=== PATIENT | male | born 1965 | race Caucasian/White ===

== ENCOUNTER → 2023-10-01 09:52 | Outpatient (REF) | payer OTHER, SELFPAY ==
[2023-10-01 13:04] LABS: % Basophils 0.8 % (0-2); % Eosinophils 5.6 % (0-6); % Immature Granulocytes 0.6 % (0-0.5); % Lymphocytes 19.6 % (20.5-51.1); % Monocytes 7.4 % (1.7-9.3); Absolute Basophils 0.1 10^3/uL (0-0.2); Absolute Eosinophils 0.4 10^3/uL (0-0.7); Absolute Immature Granulocytes 0.1 10^3/uL (0-0.05); Absolute Lymphocytes 1.5 10^3/uL (1.2-3.4); Absolute Monocytes 0.6 10^3/uL (0.1-0.6); Absolute Neutrophils 5.1 10^3/uL (1.4-6.5); Hematocrit 45.5 % (39.0-52.0); Hemoglobin 16.5 g/dL (13.0-18.0); Mean Corp Hgb Conc. 36.3 g/dL (33.0-37.0); Mean Corpuscular Hgb 32.3 pg (27.0-31.0); Mean Platelet Volume 9.9 fL (7.4-10.4); Nucleated Red Blood Cells % 0 % (-); Platelet Count 220 10^3/uL (130-400); Red Blood Cell Count 5.11 10^6/uL (4.70-6.10); Red Cell Dist. Width 12.2 % (11.5-14.5); White Blood Cell Count 7.7 10^3/uL (4.8-10.8)
[2023-10-01 14:13] LABS: ALT (SGPT) 37 U/L (0-50); AST (SGOT) 28 U/L (17-59); Albumin 4.2 g/dl (3.5-5.0); Alkaline Phosphatase 67 U/L (38-126); Blood Urea Nitrogen 19 mg/dl (9-20); Calcium 9.4 mg/dl (8.4-10.2); Carbon Dioxide 27 mmol/L (22-30); Chloride 101 mmol/L (98-107); Glucose 189 mg/dl (70-99); HDL Cholesterol 38 mg/dl; LDL Cholesterol, Calculated 23 mg/dl; Potassium 4.2 mmol/L (3.5-5.1); Sodium 137 mmol/L (135-145); Total Bilirubin 0.9 mg/dl (0.2-1.3); Total Cholesterol 95 mg/dl (50-199); Total Protein 6.7 g/dl (6.3-8.2); Triglyceride 172 mg/dl (10-149); Very Low Density Lipoprotein 34 mg/dl (0-30); eGFR > 60.00
[2023-10-01 14:14] LABS: Glycohemoglobin (HgbA1c) 8.9 % (4.0-5.6)
[2023-10-01 14:29] LABS: PSA, Total - Screen 0.52 ng/ml (0.0-4.0); TSH Reflex To Free T4 1.57 uIU/ml (0.47-4.68)
== END ==
LOC: HWLAB 09:52
PROVIDERS: ATTENDING PHYSICIAN Internal Medicine
DX: E11.65 Type 2 diabetes mellitus with hyperglycemia (principal); I10 Essential (primary) hypertension; E66.01 Morbid (severe) obesity due to excess calories; E78.5 Hyperlipidemia, unspecified
CPT/HCPCS: 36415; 80053; 80061; 83036; 84443; 85025; G0103

== ENCOUNTER → 2023-10-21 10:44 | Outpatient (REF) | payer OTHER, SELFPAY ==
[2023-10-21 13:55] LABS: Hematocrit 44.9 % (39.0-52.0); Hemoglobin 16.4 g/dL (13.0-18.0); Mean Corp Hgb Conc. 36.5 g/dL (33.0-37.0); Mean Corpuscular Hgb 32.7 pg (27.0-31.0); Mean Corpuscular Volume 89.6 fL (80.0-94.0); Mean Platelet Volume 10.1 fL (7.4-10.4); Platelet Count 241 10^3/uL (130-400); Red Blood Cell Count 5.01 10^6/uL (4.70-6.10); Red Cell Dist. Width 12.2 % (11.5-14.5); White Blood Cell Count 7.5 10^3/uL (4.8-10.8)
[2023-10-21 14:12] LABS: ALT (SGPT) 31 U/L (0-50); AST (SGOT) 31 U/L (17-59); Albumin 4.4 g/dl (3.5-5.0); Alkaline Phosphatase 65 U/L (38-126); Blood Urea Nitrogen 18 mg/dl (9-20); Calcium 9.9 mg/dl (8.4-10.2); Carbon Dioxide 23 mmol/L (22-30); Chloride 103 mmol/L (98-107); Glucose 145 mg/dl (70-99); HDL Cholesterol 37 mg/dl; LDL Cholesterol, Calculated 29 mg/dl; Potassium 4.1 mmol/L (3.5-5.1); Sodium 137 mmol/L (135-145); Total Cholesterol 88 mg/dl (50-199); Total Protein 6.8 g/dl (6.3-8.2); Triglyceride 110 mg/dl (10-149); Very Low Density Lipoprotein 22 mg/dl (0-30); eGFR > 60.00
[2023-10-21 14:26] LABS: Urine Protein 9 mg/dl
[2023-10-21 14:27] LABS: Microalbumin, Random Urine 6.7 mg/dl (0.6-1.7); Microalbumin/creatinine Ratio 31.1 mg/g
[2023-10-21 14:30] LABS: TSH 1.57 uIU/ml (0.47-4.68)
== END ==
LOC: HWLAB 10:44
PROVIDERS: ATTENDING PHYSICIAN Physician Assistant; FAMILY PHYSICIAN Internal Medicine
DX: E11.9 Type 2 diabetes mellitus without complications (principal)
CPT/HCPCS: 36415; 80053; 80061; 82043; 82570; 84156; 84443; 85027

== ENCOUNTER 2024-01-05 16:16 | Inpatient (IN) | payer OTHER, SELFPAY ==
[2024-01-05] VITALS (11 sets, daily range): BP systolic 100–158; BP diastolic 70–96; BMI 42.3; BMI 41.3
[2024-01-05 13:48] LABS: % Basophils 0.2 % (0-2); % Eosinophils 0.3 % (0-6); % Immature Granulocytes 0.4 % (0-0.5); % Lymphocytes 6.4 % (20.5-51.1); % Monocytes 8.7 % (1.7-9.3); Absolute Eosinophils 0.1 10^3/uL (0-0.7); Absolute Immature Granulocytes 0.1 10^3/uL (0-0.05); Absolute Monocytes 1.4 10^3/uL (0.1-0.6); Absolute Neutrophils 13.1 10^3/uL (1.4-6.5); Hematocrit 42.7 % (39.0-52.0); Mean Corp Hgb Conc. 37.5 g/dL (33.0-37.0); Mean Corpuscular Hgb 31.4 pg (27.0-31.0); Mean Corpuscular Volume 83.9 fL (80.0-94.0); Mean Platelet Volume 8.9 fL (7.4-10.4); Nucleated Red Blood Cells % 0 % (-); Platelet Count 197 10^3/uL (130-400); Red Blood Cell Count 5.09 10^6/uL (4.70-6.10); Red Cell Dist. Width 11.9 % (11.5-14.5); White Blood Cell Count 15.6 10^3/uL (4.8-10.8)
--- NOTE | 2024-01-05 13:50 | ED.GENMED ---
History of Present Illness
<Rebeca Balderas PA-C - Last Filed: 01/05/24 23:20>
General
Chief Complaint: Abdominal Pain
Source: patient
Exam Limitations: none
Time Seen by Provider: 01/05/24 13:29
Nursing documentation reviewed up to this point in time: agreed with
History of Present Illness
History of Present Illness:
Patient is a 58-year-old male with history of kidney stones, diabetes presenting to the emergency department for evaluation of right flank pain. Patient states he initially noticed symptoms on with an episode of pink colored urine. He then
developed a sharp pain in his right lower abdomen with radiation around to his right lower back. Patient states the pain is constant with no alleviating or exacerbating factors. Patient does also endorse nausea over the past few days. Denies any
fever, chills, vomiting. Patient does endorse very low opted for a few days due to nausea and pain. Patient has not had any other episodes of hematuria or dysuria.
Patient does have a history of kidney stones which she has always been able to pass on his own. He does have Flomax at home which she did take without any improvement.
Patient states that this feels similar to prior kidney stones
Past History
<Rebeca Balderas PA-C - Last Filed: 01/05/24 23:20>
Past History
ED Past Medical History: Asthma and Other (Kidney stones, sleep apnea, asthma, cellulitis, thyroid goiter)
ED Past Surgical History: Orthopedic
Social History
Tobacco: Non-smoker
Alcohol: Occasional
Drug: None
Personal:
Living: with family
Family History
Family History: Negative Diabetes, Hypertension or CAD
Review of Systems
<Rebeca Balderas PA-C - Last Filed: 01/05/24 23:20>
Review of Systems
Allergies reviewed?: Yes
All Other Systems: ROS reviewed and negative except as documented in HPI and ROS
Phy Exam
<Rebeca Balderas PA-C - Last Filed: 01/05/24 23:20>
Physical Exam
Physical Exam:
Vitals: Patient's vital signs are stable. Afebrile
General: Patient is well appearing, no acute distress
Skin: Warm and dry, no rashes or lesions
Head: Normocephalic, atraumatic
Eyes: Sclera nonicteric. EOMs intact. No nystagmus.
Throat: Protecting airway
Neck: Normal ROM, no cervical spine tenderness, no meningismus
Cardiac: Regular rate and rhythm, no murmurs.
Pulm: Normal respiratory effort, no wheezes, rales, rhonchi heard on exam.
Abdomen: Abdomen soft. No abdominal tenderness. No CVA tenderness
Extremities: No evidence of cyanosis or edema. Great distal pulses
Neuro: AAOx3. CN II-XII intact. No focal neurologic deficits.
Psychiatric: Normal affect.
Course
<Rebeca Balderas PA-C - Last Filed: 01/05/24 23:20>
Orders/Labs/Results
Orders:
Orders
01/05/24 13:39
CMP [Comprehensive Metabolic Panel] Urgent
Complete Blood Count/With Diff Urgent
Urinalysis Reflex To Culture Urgent
Date Specimen was Collected: 01/05/24
Time Specimen was Collected: 13:38
Urine Microscopic Reflex Cult Urgent
Urine Culture Urgent
ALEJANDRO Source: U
Specimen Description:
Date Specimen was Collected: 01/05/24
Time Specimen was Collected: 13:38
Comment: ADDON
01/05/24 13:51
Ketorolac [Toradol] 15 mg IV NOW STA
Ondansetron Injectable [Zofran] 4 mg IV NOW STA
01/05/24 13:52
CT Abd/pel Without Iv Or Oral Urgent
Comment: hx kidney stones
Reason For Exam: Right flank pain, + nausea
01/05/24 15:50
CefTRIAXone [Rocephin] 1,000 mg IV NOW STA
01/05/24 16:00
UROLOGY CONSULT Urgent
Consulting Provider: Alberto Drake Jr.
Was physician already notified: Yes
01/05/24 16:04
Admit/Transfer Patient As Directed
Co-Sign Provider:
Level of Care: Inpatient admission
Assign to:: Medical/Surgical
Physician / Group: Naresh
Diagnosis: obstructive uropathy secondary to nephrolithiasis
Reason for Hospitalization: see progress note
Expected length of stay greater than two midnights?: Yes
ELOS- Estimated Length of Stay in days: 2
I certify the patient meets the requirements for IP care: Yes
HYDROmorphone [Dilaudid] 0.25 mg IV PACU-Q5MPRN PRN
HYDROmorphone [Dilaudid] 0.5 mg IV PACU-Q5MPRN PRN
Ondansetron Injectable [Zofran] 4 mg IV PACU-ONCEPRN PRN
Prochlorperazine [Compazine] 5 mg IV PACU-ONCEPRN PRN
01/05/24 16:05
Code Status As Directed
Resuscitation Status: Full Code
Notify MD As Directed
Notify physician if: for SDS patients with known or suspected sleep obstructive sleep apnea, monitor in the
PACU.
Notify MD for any apneic/desaturation episodes
O2 Therapy [RESP] Urgent
Titrate/Wean O2 to maintain O2 sat greater than (%): 92
Special Instructions: -Provide supplemental oxygen to achieve O2 sat of 92% or greater.
-After 15 min, may wean O2 and discontinue if patient is able to maintain O2 sat of 92%
or greater during recovery period.
If patient is a discharge home, without oxygen therapy, notify anestheiologist if
unable to maintain O2 SAT of 92% or greater on room air for MD clearance.
01/05/24 16:15
0.9% Sodium Chloride 1000 ml [Nss] 1,000 ml IV PER PROTOCOL
01/05/24 17:00
Flush (0.9% Sodium Chloride) [Flush (Nss)] See Dose Instructions IV PER PROTOCOL
01/05/24 18:00
Acetaminophen [Tylenol] 650 mg PO Q4HPRN PRN
Dextrose 50%-Water [Dextrose 50% Syringe] 12.5 grams IV [id number] PRN
Glucagon [GlucaGen] 1 mg IM PRN PRN
Insulin Aspart Corrective Low [Novolog Flexpen-Low Resistance] See Protocol SC AC
Morphine Sulfate 2 mg IV Q4HPRN PRN
Tramadol HCl [Ultram] 25 mg PO Q6HPRN PRN
01/05/24 18:00
Add On - Microbiology Routine
Tests Added?: urine culture to admiting UA
Activity As Directed
Activity Level: As Tolerated
Bedside Glucose Monitoring As Directed
Frequency: AC&HS
Additional Instructions:: Change to q6h if pt on TPN, tube feeding or not eating
I&O [Intake/ Output] As Directed
Frequency: q12h
Nursing to Place Non Medication Order As Directed
Physician Order: Call MD (or night PATIENT FINANCIAL COORDINATOR if after 7 pm) to reconcile meds after he is back from OR and can have
PO intake
Above order entered?: Yes
DX Deep Vein Thrombosis Video Routine
01/05/24 19:18
Blood Culture Routine
ALEJANDRO Source: Blood/Venous
Specimen Description:
01/06/24 06:00
Basic Metabolic Panel IN AM
CBC/No Diff [Complete Blood Count/No Diff] IN AM
Glycohemoglobin (HgbA1c) IN AM
01/06/24 08:00
Heparin 5,000 units SC Q12
01/06/24 16:00
CefTRIAXone [Rocephin] 1,000 mg IV Q24H
Abnormal Lab Results
01/05/24
13:39
WBC 15.6 H 10^3/uL
(4.8-10.8)
MCH 31.4 H pg
(27.0-31.0)
MCHC 37.5 H g/dL
(33.0-37.0)
Abs Immat Gran (auto) 0.1 H 10^3/uL
(0-0.05)
Absolute Neuts (auto) 13.1 H 10^3/uL
(1.4-6.5)
Absolute Lymphs (auto) 1.0 L 10^3/uL
(1.2-3.4)
Absolute Monos (auto) 1.4 H 10^3/uL
(0.1-0.6)
Neutrophils % 84.0 H %
(42.2-75.2)
Lymphocytes % 6.4 L %
(20.5-51.1)
Sodium 133 L mmol/L
(135-145)
Chloride 95 L mmol/L
(98-107)
BUN 30 H mg/dl
(9-20)
Creatinine 2.2 H mg/dL
(0.7-1.3)
Glucose 145 H mg/dl
(70-99)
Urine Ketones 2+ A
(Negative)
Ur Occult Blood Reflex 4+ A
(Negative)
Leukocyte Esterase Rfl Trace A
(Negative)
Urine RBC 70-80 A /HPF
(0-2)
Urine Bacteria (Reflex) Few A
(Negative)
Urine Albumin (Reflex) 2+ A
(Neg - Trace)
01/05/24 13:39
01/05/24 13:39
Vital Signs
Initial and Last Documented VS:
Initial Vital Signs
Temp Pulse Resp BP Pulse Ox
99.4 F 104 16 158/96 95
01/05/24 13:08 01/05/24 13:08 01/05/24 13:08 01/05/24 13:08 01/05/24 13:08
Last Documented Vital Signs
Temp Pulse Resp BP Pulse Ox
97.9 F 85 18 123/79 96
01/05/24 21:45 01/05/24 21:45 01/05/24 21:45 01/05/24 21:45 01/05/24 21:45
<Lida Neal DO - Last Filed: 01/05/24 15:38>
Orders/Labs/Results
Orders:
Orders
01/05/24 13:39
CMP [Comprehensive Metabolic Panel] Urgent
Complete Blood Count/With Diff Urgent
Urinalysis Reflex To Culture Urgent
Date Specimen was Collected: 01/05/24
Time Specimen was Collected: 13:38
Urine Microscopic Reflex Cult Urgent
Urine Culture Urgent
ALEJANDRO Source: U
Specimen Description:
Date Specimen was Collected: 01/05/24
Time Specimen was Collected: 13:38
Comment: ADDON
01/05/24 13:51
Ketorolac [Toradol] 15 mg IV NOW STA
Ondansetron Injectable [Zofran] 4 mg IV NOW STA
01/05/24 13:52
CT Abd/pel Without Iv Or Oral Urgent
Comment: hx kidney stones
Reason For Exam: Right flank pain, + nausea
01/05/24 15:50
CefTRIAXone [Rocephin] 1,000 mg IV NOW STA
01/05/24 16:00
UROLOGY CONSULT Urgent
Consulting Provider: Alberto Drake Jr.
Was physician already notified: Yes
01/05/24 16:04
Admit/Transfer Patient As Directed
Co-Sign Provider:
Level of Care: Inpatient admission
Assign to:: Medical/Surgical
Physician / Group: Infante
Diagnosis: obstructive uropathy secondary to nephrolithiasis
Reason for Hospitalization: see progress note
Expected length of stay greater than two midnights?: Yes
ELOS- Estimated Length of Stay in days: 2
I certify the patient meets the requirements for IP care: Yes
HYDROmorphone [Dilaudid] 0.25 mg IV PACU-Q5MPRN PRN
HYDROmorphone [Dilaudid] 0.5 mg IV PACU-Q5MPRN PRN
Ondansetron Injectable [Zofran] 4 mg IV PACU-ONCEPRN PRN
Prochlorperazine [Compazine] 5 mg IV PACU-ONCEPRN PRN
01/05/24 16:05
Code Status As Directed
Resuscitation Status: Full Code
Notify MD As Directed
Notify physician if: for SDS patients with known or suspected sleep obstructive sleep apnea, monitor in the
PACU.
Notify MD for any apneic/desaturation episodes
O2 Therapy [RESP] Urgent
Titrate/Wean O2 to maintain O2 sat greater than (%): 92
Special Instructions: -Provide supplemental oxygen to achieve O2 sat of 92% or greater.
-After 15 min, may wean O2 and discontinue if patient is able to maintain O2 sat of 92%
or greater during recovery period.
If patient is a discharge home, without oxygen therapy, notify anestheiologist if
unable to maintain O2 SAT of 92% or greater on room air for MD clearance.
01/05/24 16:15
0.9% Sodium Chloride 1000 ml [Nss] 1,000 ml IV PER PROTOCOL
01/05/24 17:00
Flush (0.9% Sodium Chloride) [Flush (Nss)] See Dose Instructions IV PER PROTOCOL
01/05/24 18:00
Acetaminophen [Tylenol] 650 mg PO Q4HPRN PRN
Dextrose 50%-Water [Dextrose 50% Syringe] 12.5 grams IV [id number] PRN
Glucagon [GlucaGen] 1 mg IM PRN PRN
Insulin Aspart Corrective Low [Novolog Flexpen-Low Resistance] See Protocol SC AC
Morphine Sulfate 2 mg IV Q4HPRN PRN
Tramadol HCl [Ultram] 25 mg PO Q6HPRN PRN
01/05/24 18:00
Add On - Microbiology Routine
Tests Added?: urine culture to admiting UA
Activity As Directed
Activity Level: As Tolerated
Bedside Glucose Monitoring As Directed
Frequency: AC&HS
Additional Instructions:: Change to q6h if pt on TPN, tube feeding or not eating
I&O [Intake/ Output] As Directed
Frequency: q12h
Nursing to Place Non Medication Order As Directed
Physician Order: Call MD (or night PATIENT FINANCIAL COORDINATOR if after 7 pm) to reconcile meds after he is back from OR and can have
PO intake
Above order entered?: Yes
DX Deep Vein Thrombosis Video Routine
01/05/24 19:18
Blood Culture Routine
ALEJANDRO Source: Blood/Venous
Specimen Description:
01/06/24 06:00
Basic Metabolic Panel IN AM
CBC/No Diff [Complete Blood Count/No Diff] IN AM
Glycohemoglobin (HgbA1c) IN AM
01/06/24 08:00
Heparin 5,000 units SC Q12
01/06/24 16:00
CefTRIAXone [Rocephin] 1,000 mg IV Q24H
Abnormal Lab Results
01/05/24
13:39
WBC 15.6 H 10^3/uL
(4.8-10.8)
MCH 31.4 H pg
(27.0-31.0)
MCHC 37.5 H g/dL
(33.0-37.0)
Abs Immat Gran (auto) 0.1 H 10^3/uL
(0-0.05)
Absolute Neuts (auto) 13.1 H 10^3/uL
(1.4-6.5)
Absolute Lymphs (auto) 1.0 L 10^3/uL
(1.2-3.4)
Absolute Monos (auto) 1.4 H 10^3/uL
(0.1-0.6)
Neutrophils % 84.0 H %
(42.2-75.2)
Lymphocytes % 6.4 L %
(20.5-51.1)
Sodium 133 L mmol/L
(135-145)
Chloride 95 L mmol/L
(98-107)
BUN 30 H mg/dl
(9-20)
Creatinine 2.2 H mg/dL
(0.7-1.3)
Glucose 145 H mg/dl
(70-99)
Urine Ketones 2+ A
(Negative)
Ur Occult Blood Reflex 4+ A
(Negative)
Leukocyte Esterase Rfl Trace A
(Negative)
Urine RBC 70-80 A /HPF
(0-2)
Urine Bacteria (Reflex) Few A
(Negative)
Urine Albumin (Reflex) 2+ A
(Neg - Trace)
01/05/24 13:39
01/05/24 13:39
Vital Signs
Initial and Last Documented VS:
Initial Vital Signs
Temp Pulse Resp BP Pulse Ox
99.4 F 104 16 158/96 95
01/05/24 13:08 01/05/24 13:08 01/05/24 13:08 01/05/24 13:08 01/05/24 13:08
Last Documented Vital Signs
Temp Pulse Resp BP Pulse Ox
97.9 F 85 18 123/79 96
01/05/24 21:45 01/05/24 21:45 01/05/24 21:45 01/05/24 21:45 01/05/24 21:45
<Rebeca Balderas PA-C - Last Filed: 01/05/24 23:20>
MDM/Problems Addressed
Differential Diagnosis Includes:
Not limited to: Kidney stone, UTI, pyelonephritis, appendicitis, colitis
MDM/Problems Addressed:
58 year old male presenting with 3 days of right flank pain and associated nausea. History of kidney stones in the past. No fevers or chills. Patient very mildly tachycardic on arrival to emergency department although heart rate normal by time of my
initial examination. Patient is afebrile. Physical exam as above. Patient is non-toxic appearing in no apparent distress. Abdomen soft and nontender, no CVA tenderness. Patient perfusing well. Labs were initiated in triage which show a leukocytosis
of 15.6. Chemistry shows signs of ETHAN with creatinine elevation to 2.2 from baseline of 0.9. While urine does show bacteria and trace leukocyte esterase - there are no WBCs or nitrite to clearly indicate infection. Patient was given IVF and toradol/
zofran while CT abdomen was pending with improvement in pain.
CT does show right sided obstructive uropathy with adjacent perinephric stranding of right kidney. Given inflammatory signs on imaging along with leukocytosis- case was discussed with urologist given concern for infection. After speaking with
urology, patient was started on Rocephin. Patient will be taken to OR [facility] for stent placement and admitted to hospital for further management. Discussed findings with patient. Patient was admitted to hospitalist service. Urology will consult.
Chronic conditions affecting care:
History of kidney stones
Acute Exacerbation and/or Progression of Chronic Illness:
Obstructing right ureteral stones
<Rebeca Balderas PA-C - Last Filed: 01/05/24 23:20>
*Radiology
Radiology exam reviewed: preliminary read by ED provider and radiology read reviewed
*Pulse Oximetry
Patient hypoxic: no
*EKG
Interpreted by ED Provider?: NA
*Cafeteria Table Attendant Interpretation
Rate: Cafeteria Table Attendant- N/A
*Critical Care Note
Total Time (30-74mins, 75-104mins- exclusive of procedures): Not Applicable
<Rebeca Balderas PA-C - Last Filed: 01/05/24 23:20>
Patient Management
Discussion with other providers: Hospitalist and Manager Of Internal Audit (Urology)
Escalation/DeEscalation of care consider admission/obs:
Admission for ureteral stent and IV antibiotics
ED Attending Note
<Rebeca Balderas PA-C - Last Filed: 01/05/24 23:20>
-
Portions of this chart may have been created with voice recognition software.� Occasional wrong word or��sound alike� substitutions may have occurred due to the inherent limitations of voice recognition software.
<Lida Neal DO - Last Filed: 01/05/24 15:38>
ED Attending Note
Patient seen and examined by attending physician: Yes
I performed the substantive portion of visit, reviewed & personally made and approve the management plan that is documented in note by myself or CANDACE.: Yes
I performed a history and physical exam of patient and discussed management with resident, I reviewed resident's note and agree with documented findings and plan of care.: Yes
ED Attending Note:
58-year-old male with history of kidney stones presenting to the emergency department for 4 days of right-sided flank pain with radiation to the abdomen. Notes similar symptoms in the past with kidney stones. He tried taking Flomax, without
relief. Denies fever or systemic symptoms. Did have an episode of hematuria. Denies additional acute medical complaints. Vitals significant for mild hypertension.
On exam, patient well-appearing, nontoxic, slightly uncomfortable secondary to pain. Generalized tenderness to the right side of the abdomen. Patient's symptoms and clinical picture appears most consistent with nephrolithiasis. Laboratory
analysis obtained, shows leukocytosis. Urine does have evidence of bacteria. Kidney function is also elevated, 2.2, ETHAN. Fluids are running. Patient received Toradol with resolution of pain. CT is concerning for obstructive uropathy,
hydroureteronephrosis. There is also fat stranding to the kidney concerning for superimposed infection. At this time this time concern for infected kidney stone. Will consult with urology and start antibiotics with plan for admission. Patient
hemodynamically stable
Discharge Plan
Departure
Patient Disposition: Admit
Date of Disposition: 01/05/24
Time of Disposition: 15:52
Presentation/result/management discussed w/ accepting MD/DO: Hospitalist
Discharge Problem:
Acute unilateral obstructive uropathy, ETHAN (acute kidney injury)
Interventions
Interventions:
*Risk Screen - Suicide Last Done: 01/05/24 13:08
*General Assessment Last Done: 01/05/24 13:08
*Neglect/Abuse Screening Last Done: 01/05/24 13:08
ED- Fall Risk Assessment Last Done: 01/05/24 13:27
*ED COVID-19 Vaccine History Last Done: 01/05/24 13:08
*Nursing Disposition Last Done: 01/05/24 17:32
LI-Duanru-Arcesozjrw Assessment Last Done: 01/05/24 13:27
Discharge Date and Time
Discharge Date/Time: 01/05/24 17:33
[2024-01-05] MEDS: ZOFRAN 4 MG IV ×2 (13:55→23:25)
[2024-01-05] MEDS: TORADOL 15 MG IV (13:55)
[2024-01-05 13:59] LABS: ALT (SGPT) 26 U/L (0-50); AST (SGOT) 22 U/L (17-59); Albumin 4.4 g/dl (3.5-5.0); Alkaline Phosphatase 71 U/L (38-126); Blood Urea Nitrogen 30 mg/dl (9-20); Calcium 10.2 mg/dl (8.4-10.2); Carbon Dioxide 26 mmol/L (22-30); Chloride 95 mmol/L (98-107); Estimated Creatinine Clearance 54 ml/min; Glucose 145 mg/dl (70-99); Potassium 4.1 mmol/L (3.5-5.1); Sodium 133 mmol/L (135-145); Total Bilirubin 1.3 mg/dl (0.2-1.3); eGFR 33.45
[2024-01-05 14:10] LABS: Urine Albumin 2+ (Neg - Trace); Urine Bilirubin Negative (Negative); Urine Character Clear (Clear); Urine Color Yellow; Urine Glucose Negative (Negative); Urine Ketone 2+ (Negative); Urine Leukocyte Trace (Negative); Urine Nitrite Negative (Negative); Urine Occult Blood 4+ (Negative); Urine Urobilinogen Negative (Neg - 1+)
[2024-01-05 14:17] LABS: Urine Mucus Few
[2024-01-05 14:21] LABS: Urine Red Blood Cell 70-80 /HPF (0-2)
[2024-01-05 14:22] LABS: Urine Bacteria Few (Negative)
[2024-01-05] MEDS: ROCEPHIN 1000 MG IV (16:16)
--- NOTE | 2024-01-05 16:24 | HPS.HSE ---
Family Physician
-
Family Physician: Angel Mariee
Chief Complaint
-
right flank pain
History of Present Illness
patient presents with right-sided flank pain since . Has been intermittent. It starts in the right flank and radiates to the right anterior abdomen and [id number]. Pain mild to moderate in intensity.
Associated nausea but no vomiting. No fever or chills at home.
Known to have kidney stones and has passed multiple of them. Nothing recent. Never needed cystoscopy or intervention.
CT Abdo/Pelvis shows right-sided stacked proximal ureter stones with obstruction and right perinephric and right periureteral fat stranding.
going to over tonight. Last meal was last night/dinner. He states he cannot eat because of the nausea.
Medical History
Past Medical History
Past Medical History: Reports CVA (remote past ? etiology), HTN, Hypercholesterolemia and NIDDM
Past Surgical History: Reports Orthopedic ( Right knee replacement)
Additional Past Surgical History:
goiter removal
Social History
Tobacco: Non-smoker
Alcohol: Occasional
Drug: None
Personal:
Living: With Family
Family History
Family History: Not pertinent
Allergies / Home Medications
Allergies reflects when Allergies were last updated in [employer].
Home Medications with original date entered in [employer]
Allergy/Medication List:
Allergies
Allergy/AdvReac Type Severity Reaction Status Date / Time
No Known Allergies Allergy Verified 01/03/24 14:44
Home Medications
albuterol sulfate 90 mcg/actuation aerosol inhaler 2 puff inhalation R Q6HPRN PRN SOB 08/10/14
hydrochlorothiazide 25 mg tablet 25 mg PO DAILY 07/06/16
atorvastatin 40 mg tablet 40 mg PO QPM 05/20/23
meloxicam 15 mg tablet 15 mg PO DAILY 05/20/23
metformin 500 mg tablet 500 mg PO BID 05/20/23
multivitamin 1 tab PO DAILY 05/20/23
tramadol 50 mg tablet 50 mg PO Q8HPRN PRN moderate pain 05/20/23
aspirin 81 mg chewable tablet 81 mg PO DAILY 01/03/24
montelukast 10 mg tablet 10 mg PO HS 01/03/24
tirzepatide 5 mg/0.5 mL subcutaneous pen injector (Mounjaro) 5 mg SC MO 01/03/24
acetaminophen 325 mg tablet (Tylenol) 650 mg PO Q4HPRN PRN mild pain 01/05/24
sennosides 8.6 mg tablet (senna) 17.2 mg PO DAILYPRN PRN constipation 01/05/24
tamsulosin 0.4 mg capsule (Flomax) 0.4 mg PO DAILYPRN PRN kidney stones 01/05/24
Review of Systems
-
A 12 point ROS was completed and negative except as noted: Yes
Physical Exam
Vital Signs
Vital Signs
Temp Pulse Resp BP Pulse Ox
99.4 F 97 18 151/73 95
01/05/24 13:08 01/05/24 15:13 01/05/24 15:13 01/05/24 15:13 01/05/24 15:13
Physical Exam
General: No Apparent Distress
HEENT: Moist mucous membranes
Respiratory: Clear
Cardiac: S1/S2 and Regular Rhythm
GI: Soft, Non Distended, Normal Bowel Sounds and Tender (rt lumbar area along with right flank)
Genito-urinary: Costovertebral angle tend (rt)
Neuro: AO x 3
Psych: Calm
Laboratory Results
-
01/05/24 13:39
01/05/24 13:39
Laboratory Results
Total Bilirubin 1.3 mg/dl (0.2-1.3) 01/05/24 13:39
AST 22 U/L (17-59) 01/05/24 13:39
ALT 26 U/L (0-50) 01/05/24 13:39
Alkaline Phosphatase 71 U/L (38-126) 01/05/24 13:39
Data Reviewed
-
Lab Data: Labs Reviewed by me
Impression/Plan
-
Acute obstructive uropathy secondary to right proximal ureteral stones. Patient also has right perinephric and periureteral fat stranding with leukocytosis and tachycardia. Cannot rule out concurrent infection. Meets criteria for sepsis.
Urinalysis shows no pyuria but will cover with empirical antibiotics pending urine culture data on blood culture data due to SIRS vs sepsis. start on CTX . Obtain UCX/CX.
Consult urology .
ETHAN sec to obstructive uropathy. hold patient's meloxicam and hydrochlorothiazide. Avoid NSAIDs. Follow creatinine post urological intervention.
Diabetes mellitus type 2-hold oral medications/home medications and follow on sliding scale insulin
Hx of remote CVA -resume ASA and statins
Full code.
--- NOTE | 2024-01-05 16:35 | CON.MD ---
Consultation - Medical
-
see dictated note
pt with hx of multiple passed stones- no prior intervention
presents with 3 day hx of pain/ n-v
cr up to 2.2- wbc 15
[address] shows multiple stones in right ureter
plan
reviewed with pt- and med team
medical stabilization and to OR for stent
risks, benefits, alternatives and disabilities reviewed including possible need for perc tube given ureteral stone burden
--- NOTE | 2024-01-05 17:53 | W.IMMPOSTOP ---
Surgical Immed Post Op Note
-
Primary Surgeon:
angel
Assisting Surgeon:
Pre-op Diagnosis:
right ureteral stones
Post-op Diagnosis:
same
Procedure Performed:
cysto/right ureteral stent
Anesthesia Type:
gen
Specimen / Cultures:
none
Estimated Blood Loss:
1cc
Complications:
none
Operative Findings:
right ureteral stent placed
to pacu in stable condition
[2024-01-05 18:06] LABS: Glucose - Point of Care 111 mg/dl (70-99)
[2024-01-05] MEDS: NOVOLOG FLEXPEN-LOW RESISTANCE SC (18:55)
--- NOTE | 2024-01-05 19:08 | PTCARENOTE ---
pt arrived at 1838 to 2108. Aox3 no pain. dinner arrived at same time 1800 BS 111.
[2024-01-05] MEDS: FLOMAX 0.4 MG PO (19:38)
[2024-01-05 21:47] LABS: Glucose - Point of Care 283 mg/dl (70-99)
--- NOTE | 2024-01-05 22:32 | PTCARENOTE ---
per nursing to place order- TT sent to SUSANA Edmondson at 2014 to order patients home medications once med rec was completed.
[2024-01-05] MEDS: MORPHINE SULFATE 2 MG IV (23:24)
[2024-01-05] MEDS: Pyridium 100 MG PO (23:24)
[2024-01-06 03:11] VITALS: BP 123/73
--- NOTE | 2024-01-06 06:17 | W.PN.URO.CBU ---
Today's Communication / Plan
-
discharge when medically stable
Assessment / Plan
-
stone- s/p stent
for cr check today- if normal- cleared for discharge urologically
would cover empirically with an antibx for the next 5 days (other meds- flomax/pyridium and ultram entered)
pt to call for outpt f/u with dr ortiz
Diagnosis
-
Date of Service: January 06, 2024
-
Patient Diagnosis:
stone
Post Op Day:
right ureteral stent 01/04
Subjective
-
pt feels well
eating and drinking
urinating without difficulty
Objective
-
Vital Signs
Temp Pulse Resp BP Pulse Ox
97.2 F 74 18 123/73 96
01/06/24 03:11 01/06/24 03:11 01/06/24 03:11 01/06/24 03:11 01/06/24 03:11
Intake and Output
01/04/24 01/05/24 01/06/24
06:59 06:59 06:59
Intake Total 800 / 800
Output Total 2900 / 2900
Balance -2100 / -2100
Intake:
Oral fluids 800 / 800
Output:
Urine, Voided 2900 / 2900
Review of Systems
-
Constitutional: No Symptoms
Respiratory: No Symptoms
Cardiac: No Symptoms
Abdomen/GI: No Symptoms
Physical Exam
-
General -no acute distress
[2024-01-06 06:57] LABS: Hematocrit 41.3 % (39.0-52.0); Hemoglobin 15.2 g/dL (13.0-18.0); Mean Corp Hgb Conc. 36.8 g/dL (33.0-37.0); Mean Corpuscular Hgb 31.5 pg (27.0-31.0); Mean Corpuscular Volume 85.5 fL (80.0-94.0); Mean Platelet Volume 9.2 fL (7.4-10.4); Platelet Count 212 10^3/uL (130-400); Red Blood Cell Count 4.83 10^6/uL (4.70-6.10); Red Cell Dist. Width 11.8 % (11.5-14.5); White Blood Cell Count 11.4 10^3/uL (4.8-10.8)
[2024-01-06 07:03] VITALS: BP 131/78
[2024-01-06 07:06] LABS: Glucose - Point of Care 197 mg/dl (70-99)
[2024-01-06 07:19] LABS: Blood Urea Nitrogen 30 mg/dl (9-20); Calcium 9.7 mg/dl (8.4-10.2); Carbon Dioxide 28 mmol/L (22-30); Chloride 98 mmol/L (98-107); Estimated Creatinine Clearance 79 ml/min; Glucose 179 mg/dl (70-99); Potassium 4.4 mmol/L (3.5-5.1); Sodium 135 mmol/L (135-145); eGFR 52.97
[2024-01-06] MEDS: FLOMAX 0.4 MG PO (07:34)
[2024-01-06] MEDS: Pyridium 100 MG PO (07:34)
[2024-01-06] MEDS: ASPIR LOW (ENTERIC COATED) 81 MG PO (07:35)
[2024-01-06] MEDS: HEPARIN 5000 UNITS SC (07:35)
[2024-01-06] MEDS: NOVOLOG FLEXPEN-LOW RESISTANCE 1 UNITS SC (07:35)
[2024-01-06] MEDS: SINGULAIR 10 MG PO (07:35)
[2024-01-06] MEDS: THERAGRAN 1 TABLET PO (07:35)
[2024-01-06] MEDS: LIPITOR 40 MG PO (07:35)
[2024-01-06] MEDS: GLUCOPHAGE 500 MG PO (07:35)
--- NOTE | 2024-01-06 09:40 | W.PN.HOSP.TC ---
Addendum entered and electronically signed by Hill Sanz MD 01/06/24 17:23:
I saw and evaluated the patient. I reviewed the resident�s note and agree with findings and plan as documented in the resident�s note.
No reported problems overnight
Dressed up and waiting for discharge papers when rounded.
1. Right ureteral obstructive uropathy
Bilateral nephrolithiasis
-CT abdomen pelvis showing multiple suspected small calculi in the proximal right ureter causing right hydroureteronephrosis. Some right perinephric and periureteral fat stranding also visible
-Underwent cystoscopy and right ureteral stent insertion on 01/04
-UA showing few bacteria and RBC 70-80.
-Urine culture report pending
-Cleared by urology for discharge. Maintain on empiric Keflex for 3 days postdischarge
2. Acute kidney injury
-Secondary to ureteral stone obstruction and medication related
-Hold hydrochlorothiazide/meloxicam for next few days
-Creatinine improving rapidly post ureteral stenting
-Follow-up BMP in 1 week, follow-up with primary care physician
3. Type II Diabetes mellitus type
-Hbga1c of 6.2
-Continue home medications
4. History of remote CVA
-Continue ASA and statins
Full code
DVT prophylaxis: Heparin
Discharge planning for home today
Original Note:
Today's Communication/Plan
-
- D/c home.
- fu with pcp and urology within 1 week
Assessment / Plan
Assessment / Plan
58-year-old male presented with right flank pain with radiation to right anterior abdomen and back. Associated nausea but no vomiting, no chills no fever.
# Acute obstructive uropathy
-Secondary to right proximal ureteral stone
-Creatinine 2.2 (baseline 0.9)
-s/p cystoscopy/right ureteral stent
-repeat creat 1.5
-Good urine output
-Pain subsided after the procedure per patient
-Cephalexin for 3 days
-Hold hydrochlorothiazide and metformin for 3 days
-Tramadol for pain control
#ETHAN
-Secondary to obstruction caused by ureteral stone
-check BMP at with outpatient
# Diabetes mellitus type 2
-Continue home medications
# History of remote CVA
-Continue ASA and statins
Full code
DVT prophylaxis: Heparin
Anticipated Discharge: Today
Subjective/Interval History
-
Date of Service: January 06, 2024
Objective Data
-
Labs:
Laboratory Results
01/06/24
06:34
WBC 11.4 H
Hgb 15.2
Hct 41.3
Plt Count 212
Sodium 135
Potassium 4.4
Chloride 98
Carbon Dioxide 28
BUN 30 H
Creatinine 1.5 H
Glucose 179 H
Calcium 9.7
Vital Signs:
Vital Signs
Temp Pulse Resp BP Pulse Ox
98 F 80 17 131/78 96
01/06/24 07:03 01/06/24 07:03 01/06/24 07:03 01/06/24 07:03 01/06/24 07:03
I&O
01/05/24 01/06/24 01/07/24
06:59 06:59 06:59
Intake Total 800 / 800
Output Total 2900 / 2900
Balance -2100 / -2100
Review of Systems
-
History Source: Patient
Constitutional: Denies Fever
Respiratory: Denies Cough
Cardiac: Denies Chest Pain
Abdomen/GI: Denies Abdominal Pain
Musculoskeletal: Denies Joint Pain
Neuro: Denies Headache
Hematologic / Lymphatic: Denies Bleeding
Physical Exam
-
General: Well Developed, Well Nourished and No Apparent Distress
HEENT: Normocephalic and Atraumatic
Respiratory: Clear to Auscultation
Cardiac: Regular Rhythm
GI: Soft and Nontender
Skin: Warm and Dry
Neuro: Awake, Alert and Oriented
Psych: Calm
Data Reviewed
-
Labs: Labs Reviewed by me, Discussed with Physician and Discussed with Patient
[2024-01-06 09:56] LABS: Glycohemoglobin (HgbA1c) 6.2 % (4.0-5.6)
--- NOTE | 2024-01-06 10:05 | CM ---
Patient with Dx right ureteral stones s/p cysto/right ureteral stent.
Spoke with patient who resides with his in a 2 story house.
The patient has been independent in ADLs and ambulation.
DME - CPAP, RW
No prior VN.
PCP - Angel Woodruff
Pharmacy - [facility]
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
The patient says he feels ready for d/c and is hoping he will be able to go home today. His will provide transport home today.
No CM d/c needs identified.
Plan home.
--- NOTE | 2024-01-06 10:45 | W.DCSUMMARY ---
Addendum entered and electronically signed by Hill Sanz MD 01/07/24 14:01:
Read, reviewed, and agree. See same day progress note for additional details. Time spent coordinating care, DC planning, review of DC plan of care with resident, transition of care, review of records in EMR, med rec, consults, notes, d/w
consultants, nursing, family, and CM 38 mins
Original Note:
Documented by User: Shahriar Curry MD, Resident 01/06/24 17:07
Discharge Summary
Discharge Data
Date of Admission: 01/05/24
Date of Discharge: 01/06/24
-
Pending Results: No
Hospital Course
Discharging Physician : Shahriar Curry MD ; Hill Sanz MD
Disposition : Home
Primary care physician : Angel Mariee
Principal Discharge diagnosis : Acute obstructive uropathy
Chronic Discharge diagnosis : Diabetes type 2, is remote history of CVA, hypercholesterolemia
Hospital Course : 58-year-old male with known history of renal stone presented with right-sided flank pain for 3 to 4 days. Reported the pain radiates to anterior abdomen and back and sometimes associated with nausea but no vomiting. CT
abdomen/pelvis showed right-sided stacked proximal ureteral stones with obstruction and right perinephric and right periureteral fat stranding. Creatinine was 2.2. He underwent cystoscopy/right ureteral stent. Reportedly his pain subsided after
the procedure repeat blood work shows creatinine 1.5. He was cleared by urology for discharge. Provided a prescription for repeat BMP and instructed to hold hydrochlorothiazide and meloxicam for 3 to 4 days before restarting. He has an
appointment scheduled with urology for further evaluation/follow-up. Provided short prescription of tramadol for pain control.
Important imaging findings : CT ABd/pelvis: Obstructive uropathy secondary to multiple stacked small calculi in the proximal right ureter causing right hydroureteronephrosis. Bilateral parapelvic renal cysts and bilateral nephrolithiasis. Right
perinephric and periureteral fat stranding for which superimposed infection is not excluded.
Discharge Plan
-
Patient Disposition: Home (Routine Discharge)
Discharge Diagnosis/Procedures: Right ureteral stent placed due to obstructing right ureteral stones
Condition: Good
Diet: No restrictions
Additional Diets: drink plenty of water
Activity: No restrictions
Driving Restrictions: As prior to admission
Bathing Restrictions: OK to Shower
Wound Care: expect some blood in urine, urinary urgency and frequency and some pain with urination
Referrals:
Angel Mariee DO [Family Provider] - in one week
Alberto Drake Jr., MD [Active] - in less than 1 week (call on day of discharge to schedule follow up appointment)
Prescriptions:
New
tamsulosin 0.4 mg capsule
0.4 mg PO DAILY Qty: 30 0RF
phenazopyridine [Pyridium] 100 mg tablet
100 mg PO BID Qty: 60 0RF
tramadol 25 mg tablet
25 mg PO Q6H PRN (Reason: mod sev pain) Qty: 14 0RF
Rx Instructions:
Take 2 tablets if sev pain
cephalexin 750 mg capsule
750 mg PO BID Qty: 6 0RF
Continued
albuterol sulfate 1 PUFF HFA aerosol inhaler
2 puff inhalation R Q6HPRN PRN (Reason: SOB)
multivitamin Tablet
1 tab PO DAILY
atorvastatin 40 mg Tablet
40 mg PO DAILY
metformin 500 mg Tablet
500 mg PO BID
aspirin 81 mg Tablet,Chewable
81 mg PO DAILY
Mounjaro 5 mg/0.5 mL Pen Injector
5 mg SC MO
montelukast 10 mg Tablet
10 mg PO DAILY
sennosides [senna] 8.6 mg Tablet
17.2 mg PO DAILYPRN PRN (Reason: constipation)
acetaminophen [Tylenol] 325 mg Tablet
650 mg PO Q4HPRN PRN (Reason: mild pain)
Held
hydrochlorothiazide 25 MG tablet
25 mg PO DAILY
Hold Instructions: Resume on 01/10/24.
meloxicam 15 mg Tablet
15 mg PO DAILY
Hold Instructions: Resume on 01/10/24.
Discontinued
tramadol 50 mg Tablet
50 mg PO Q8HPRN PRN (Reason: moderate pain)
tamsulosin [Flomax] 0.4 mg Capsule
0.4 mg PO DAILYPRN PRN (Reason: kidney stones)
Discharge Orders:
Discharge Patient (As Directed); Ordered 01/06/24
Ordered By: Hill Sanz
Discharge Date and Time
Discharge Date/Time: 01/06/24 12:54
Print Language: BENGALI

Documented by User: Hill Sanz MD 01/07/24 14:00
Discharge Summary
Discharge Data
Date of Admission: 01/05/24
Date of Discharge: 01/06/24
Discharge Plan
-
Patient Disposition: Home (Routine Discharge)
Discharge Diagnosis/Procedures: Right ureteral stent placed due to obstructing right ureteral stones
Condition: Good
Diet: No restrictions
Additional Diets: drink plenty of water
Activity: No restrictions
Driving Restrictions: As prior to admission
Bathing Restrictions: OK to Shower
Wound Care: expect some blood in urine, urinary urgency and frequency and some pain with urination
Referrals:
Angel Mariee I., [Family Provider] - in one week
Alberto Drake Jr., MD [Active] - in less than 1 week (call on day of discharge to schedule follow up appointment)
Prescriptions:
New
tamsulosin 0.4 mg capsule
0.4 mg PO DAILY Qty: 30 0RF
phenazopyridine [Pyridium] 100 mg tablet
100 mg PO BID Qty: 60 0RF
tramadol 25 mg tablet
25 mg PO Q6H PRN (Reason: mod sev pain) Qty: 14 0RF
Rx Instructions:
Take 2 tablets if sev pain
cephalexin 750 mg capsule
750 mg PO BID Qty: 6 0RF
Continued
albuterol sulfate 1 PUFF HFA aerosol inhaler
2 puff inhalation R Q6HPRN PRN (Reason: SOB)
multivitamin Tablet
1 tab PO DAILY
atorvastatin 40 mg Tablet
40 mg PO DAILY
metformin 500 mg Tablet
500 mg PO BID
aspirin 81 mg Tablet,Chewable
81 mg PO DAILY
Mounjaro 5 mg/0.5 mL Pen Injector
5 mg SC MO
montelukast 10 mg Tablet
10 mg PO DAILY
sennosides [senna] 8.6 mg Tablet
17.2 mg PO DAILYPRN PRN (Reason: constipation)
acetaminophen [Tylenol] 325 mg Tablet
650 mg PO Q4HPRN PRN (Reason: mild pain)
Held
hydrochlorothiazide 25 MG tablet
25 mg PO DAILY
Hold Instructions: Resume on 01/10/24.
meloxicam 15 mg Tablet
15 mg PO DAILY
Hold Instructions: Resume on 01/10/24.
Discontinued
tramadol 50 mg Tablet
50 mg PO Q8HPRN PRN (Reason: moderate pain)
tamsulosin [Flomax] 0.4 mg Capsule
0.4 mg PO DAILYPRN PRN (Reason: kidney stones)
Discharge Orders:
Discharge Patient (As Directed); Ordered 01/06/24
Ordered By: Hill Sanz
Discharge Date and Time
Discharge Date/Time: 01/06/24 12:54
Print Language: BENGALI
[2024-01-06 11:07] VITALS: BP 129/78
[2024-01-06 11:48] LABS: Glucose - Point of Care 137 mg/dl (70-99)
[2024-01-06] MEDS: NOVOLOG FLEXPEN-LOW RESISTANCE SC (11:49)
== END 2024-01-06 12:54 | disposition home or self-care (01) | DRG 660 ==
LOC: 2 SOUTH 16:16
PROVIDERS: Physician Assistant; ADMITTING PHYSICIAN Internal Medicine; ATTENDING PHYSICIAN Hospitalist; CONSULT PHYSICIAN Specialist; EMERGENCY PHYSICIAN Student in an Organized Health Care Education/Training Program; FAMILY PHYSICIAN Internal Medicine
PROC: 0T768DZ Dilation of Right Ureter with Intraluminal Device, Via Natural or Artificial Opening Endoscopic (ICD-10-PCS; 2024-01-05)
DX: N13.2 Hydronephrosis with renal and ureteral calculous obstruction (principal); Z68.41 Body mass index [BMI] 40.0-44.9, adult; N21.0 Calculus in bladder; E11.9 Type 2 diabetes mellitus without complications; J45.909 Unspecified asthma, uncomplicated; G47.30 Sleep apnea, unspecified; I10 Essential (primary) hypertension; E78.00 Pure hypercholesterolemia, unspecified; N28.9 Disorder of kidney and ureter, unspecified; E66.9 Obesity, unspecified; Z86.73 Personal history of transient ischemic attack (TIA), and cerebral infarction without residual deficits; Z79.82 Long term (current) use of aspirin; Z79.84 Long term (current) use of oral hypoglycemic drugs; Z79.85 Long-term (current) use of injectable non-insulin antidiabetic drugs
CPT/HCPCS: 74018; 74176; 76000; 80048; 80053; 81003; 81015; 82962; 83036; 85025; 85027; 87040; 87086; 96374; 96375; 99285; C2617

== ENCOUNTER → 2024-01-10 11:05 | Outpatient (REF) | payer OTHER, SELFPAY ==
[2024-01-10 15:30] LABS: ALT (SGPT) 29 U/L (0-50); AST (SGOT) 23 U/L (17-59); Albumin 4.1 g/dl (3.5-5.0); Alkaline Phosphatase 72 U/L (38-126); Blood Urea Nitrogen 20 mg/dl (9-20); Calcium 9.7 mg/dl (8.4-10.2); Carbon Dioxide 27 mmol/L (22-30); Chloride 103 mmol/L (98-107); Glucose 122 mg/dl (70-99); Potassium 4.3 mmol/L (3.5-5.1); Sodium 138 mmol/L (135-145); Total Protein 6.6 g/dl (6.3-8.2); eGFR > 60.00
[2024-01-10 15:36] LABS: Hematocrit 44.4 % (39.0-52.0); Hemoglobin 15.8 g/dL (13.0-18.0); Mean Corp Hgb Conc. 35.6 g/dL (33.0-37.0); Mean Corpuscular Hgb 31.3 pg (27.0-31.0); Mean Corpuscular Volume 87.9 fL (80.0-94.0); Mean Platelet Volume 9.1 fL (7.4-10.4); Platelet Count 269 10^3/uL (130-400); Red Blood Cell Count 5.05 10^6/uL (4.70-6.10); Red Cell Dist. Width 11.8 % (11.5-14.5)
== END ==
LOC: HWLAB 11:05
PROVIDERS: ATTENDING PHYSICIAN Physician Assistant; FAMILY PHYSICIAN Internal Medicine
DX: E11.65 Type 2 diabetes mellitus with hyperglycemia (principal)
CPT/HCPCS: 36415; 80053; 85027

== ENCOUNTER 2024-01-24 06:10 | Day surgery (SDC) | payer OTHER, SELFPAY | END 2024-01-24 08:33 | disposition home or self-care (01) | LOC: SDS 06:10 | PROVIDERS: ATTENDING PHYSICIAN Specialist | DX: Z53.9 Procedure and treatment not carried out, unspecified reason (principal); N20.0 Calculus of kidney | CPT/HCPCS: 52356 ==

== ENCOUNTER 2024-01-29 06:11 | Day surgery (SDC) | payer OTHER, SELFPAY ==
[2024-01-29] VITALS (10 sets, daily range): BP systolic 81–138; BP diastolic 48–83
[2024-01-29 06:38] LABS: Glucose - Point of Care 141 mg/dl (70-99)
[2024-01-29] MEDS: TYLENOL 1000 MG PO (06:41)
[2024-01-29] MEDS: NORMOSOL-R 1000 IV (06:41)
== END 2024-01-29 09:25 | disposition home or self-care (01) ==
LOC: SDS 06:11
PROVIDERS: ATTENDING PHYSICIAN Surgery
DX: D48.19 Other specified neoplasm of uncertain behavior of connective and other soft tissue (principal); R22.41 Localized swelling, mass and lump, right lower limb; M79.89 Other specified soft tissue disorders
CPT/HCPCS: 27327; 88304; 82962; 88341; 88342

== ENCOUNTER 2024-02-11 06:50 | Day surgery (SDC) | payer OTHER, SELFPAY ==
[2024-02-11] VITALS (8 sets, daily range): BP systolic 113–134; BP diastolic 68–85; BMI 40.5
[2024-02-11 12:47] LABS: Glucose - Point of Care 127 mg/dl (70-99)
[2024-02-11] MEDS: NORMOSOL-R 1000 IV (12:49)
[2024-02-11] MEDS: TYLENOL 1000 MG PO (12:58)
[2024-02-11 15:25] LABS: Glucose - Point of Care 91 mg/dl (70-99)
--- NOTE | 2024-02-11 15:45 | SUR.PHASEI ---
Dr. Balderas notified pt with pulse ox 96% on room air. Per Dr. Balderas, pt stable for discharge to [facility].
== END 2024-02-11 17:00 | disposition home or self-care (01) ==
LOC: SDS 06:50
PROVIDERS: ATTENDING PHYSICIAN Specialist
DX: N20.2 Calculus of kidney with calculus of ureter (principal)
CPT/HCPCS: 52352; 52332; 74018; 76000; 82365; 82962; C1758; C1894; C2617

== ENCOUNTER → 2024-04-21 14:34 | Outpatient (REF) | payer OTHER, SELFPAY ==
[2024-04-21 17:09] LABS: ALT (SGPT) 38 U/L (0-50); AST (SGOT) 30 U/L (17-59); Albumin 4.4 g/dl (3.5-5.0); Alkaline Phosphatase 57 U/L (38-126); Blood Urea Nitrogen 17 mg/dl (9-20); Calcium 9.4 mg/dl (8.4-10.2); Carbon Dioxide 28 mmol/L (22-30); Chloride 103 mmol/L (98-107); Glucose 104 mg/dl (70-99); Potassium 4.4 mmol/L (3.5-5.1); Sodium 144 mmol/L (135-145); Total Bilirubin 0.6 mg/dl (0.2-1.3); Total Protein 6.8 g/dl (6.3-8.2); eGFR 52.97
[2024-04-21 17:10] LABS: Uric Acid 7.4 mg/dl (3.5-8.5)
[2024-04-22 11:58] LABS: Intact PTH 45.5 pg/ml (13.6-85.8)
== END ==
LOC: REG 14:34
PROVIDERS: ATTENDING PHYSICIAN Specialist; FAMILY PHYSICIAN Internal Medicine
DX: N20.0 Calculus of kidney (principal)
CPT/HCPCS: 36415; 80053; 83970; 84550

== ENCOUNTER → 2024-06-12 06:25 | Day surgery (SDC) | payer OTHER, SELFPAY ==
[2024-06-12 10:52] LABS: Glucose - Point of Care 126 mg/dl (70-99)
== END ==
LOC: GI 06:25
PROVIDERS: ATTENDING PHYSICIAN Internal Medicine
DX: Z12.11 Encounter for screening for malignant neoplasm of colon (principal); Z53.8 Procedure and treatment not carried out for other reasons; K92.1 Melena; K22.89 Other specified disease of esophagus; K31.89 Other diseases of stomach and duodenum; K29.50 Unspecified chronic gastritis without bleeding; K22.70 Barrett's esophagus without dysplasia; K86.89 Other specified diseases of pancreas; Z13.810 Encounter for screening for upper gastrointestinal disorder
CPT/HCPCS: 43239; G0121; 88305; 82962; 88342

== ENCOUNTER → 2024-10-06 08:39 | Outpatient (REF) | payer OTHER, SELFPAY ==
[2024-10-06 12:00] LABS: Hemoglobin 15.7 g/dL (13.0-18.0); Mean Corp Hgb Conc. 37.4 g/dL (33.0-37.0); Mean Corpuscular Hgb 34.3 pg (27.0-31.0); Mean Corpuscular Volume 91.7 fL (80.0-94.0); Mean Platelet Volume 9.6 fL (7.4-10.4); Platelet Count 189 10^3/uL (130-400); Red Blood Cell Count 4.58 10^6/uL (4.70-6.10); Red Cell Dist. Width 12.8 % (11.5-14.5); White Blood Cell Count 7.3 10^3/uL (4.8-10.8)
[2024-10-06 12:23] LABS: ALT (SGPT) 40 U/L (0-50); AST (SGOT) 28 U/L (17-59); Albumin 3.8 g/dl (3.5-5.0); Alkaline Phosphatase 74 U/L (38-126); Blood Urea Nitrogen 20 mg/dl (9-20); Calcium 9.8 mg/dl (8.4-10.2); Carbon Dioxide 28 mmol/L (22-30); Chloride 107 mmol/L (98-107); Glucose 147 mg/dl (70-99); HDL Cholesterol 37 mg/dl; LDL Cholesterol, Calculated 33 mg/dl; Potassium 4.3 mmol/L (3.5-5.1); Sodium 141 mmol/L (135-145); Total Cholesterol 97 mg/dl (50-199); Total Protein 6.3 g/dl (6.3-8.2); Triglyceride 139 mg/dl (10-149); Very Low Density Lipoprotein 27 mg/dl (0-30); eGFR > 60.00
[2024-10-06 12:30] LABS: Glycohemoglobin (HgbA1c) 6.7 % (4.0-5.6)
[2024-10-06 12:34] LABS: Free T4 0.84 ng/dl (0.78-2.19)
[2024-10-06 12:48] LABS: TSH 2.44 uIU/ml (0.47-4.68)
[2024-10-06 14:11] LABS: Urine Protein < 5 mg/dl
[2024-10-06 14:12] LABS: Microalbumin, Random Urine 2.1 mg/dl (0.6-1.7); Microalbumin/creatinine Ratio 10.3 mg/g
== END ==
LOC: HWLAB 08:39
PROVIDERS: ATTENDING PHYSICIAN Physician Assistant; FAMILY PHYSICIAN Internal Medicine
DX: E11.65 Type 2 diabetes mellitus with hyperglycemia (principal); Z98.890 Other specified postprocedural states; E78.5 Hyperlipidemia, unspecified
CPT/HCPCS: 36415; 80053; 80061; 82043; 82570; 83036; 84156; 84439; 84443; 85027

== ENCOUNTER → 2024-12-02 10:03 | Outpatient (REF) | payer OTHER, SELFPAY | LOC: RCS 10:03 | PROVIDERS: ATTENDING PHYSICIAN Physical Medicine & Rehabilitation; FAMILY PHYSICIAN Internal Medicine | DX: Z01.818 Encounter for other preprocedural examination (principal) | CPT/HCPCS: 93005 ==

== ENCOUNTER → 2025-03-26 14:35 | Outpatient (REF) | payer OTHER, SELFPAY | LOC: HWRCS 14:35 | PROVIDERS: ATTENDING PHYSICIAN Internal Medicine Cardiovascular Disease; FAMILY PHYSICIAN Internal Medicine | DX: H34.212 Partial retinal artery occlusion, left eye (principal) | CPT/HCPCS: 93306 ==

== ENCOUNTER → 2025-03-30 10:04 | Outpatient (REF) | payer OTHER, SELFPAY ==
[2025-03-30 13:13] LABS: ALT (SGPT) 44 U/L (0-50); AST (SGOT) 21 U/L (17-59); Albumin 4.4 g/dl (3.5-5.0); Alkaline Phosphatase 80 U/L (38-126); Blood Urea Nitrogen 23 mg/dl (9-20); Calcium 9.7 mg/dl (8.4-10.2); Carbon Dioxide 30 mmol/L (22-30); Chloride 99 mmol/L (98-107); Glucose 311 mg/dl (70-99); HDL Cholesterol 50 mg/dl; LDL Cholesterol, Calculated 40 mg/dl; Potassium 4.1 mmol/L (3.5-5.1); Sodium 136 mmol/L (135-145); Total Protein 6.9 g/dl (6.3-8.2); Very Low Density Lipoprotein 36 mg/dl (0-30); eGFR > 60.00
[2025-03-30 13:44] LABS: PSA, Total - Screen 0.51 ng/ml (0.0-4.0)
[2025-03-30 13:54] LABS: Glycohemoglobin (HgbA1c) 8.9 % (4.0-5.6)
== END ==
LOC: HWLAB 10:04
PROVIDERS: ATTENDING PHYSICIAN Internal Medicine
DX: E11.65 Type 2 diabetes mellitus with hyperglycemia (principal); E78.5 Hyperlipidemia, unspecified; G47.30 Sleep apnea, unspecified; R35.1 Nocturia
CPT/HCPCS: 36415; 80053; 80061; 83036; G0103

== ENCOUNTER → 2025-04-02 06:17 | Outpatient (REF) | payer OTHER, SELFPAY | LOC: RAD 06:17 | PROVIDERS: ATTENDING PHYSICIAN Internal Medicine Cardiovascular Disease; FAMILY PHYSICIAN Internal Medicine | DX: H34.212 Partial retinal artery occlusion, left eye (principal) | CPT/HCPCS: 93880 ==

== ENCOUNTER → 2025-04-30 07:06 | Outpatient (REF) | payer OTHER, SELFPAY | LOC: HWRCS 07:06 | PROVIDERS: ATTENDING PHYSICIAN Nurse Practitioner; FAMILY PHYSICIAN Internal Medicine | DX: I47.29 Other ventricular tachycardia (principal) | CPT/HCPCS: 78452; 93017; A9500; J2785 ==